=== PATIENT | male | born 1950 | race Caucasian/White ===

== ENCOUNTER 2024-05-26 10:42 | Outpatient (CLI) | payer MEDICARE, SELFPAY ==
--- OUTSIDE RECORDS SUMMARY | 2024-05-26 12:42 | XMS_ITS | Clinical Summary ---
Author Organization [facility] Address [address] [place] [id number] Care Team Providers Care Second Class Welder Name Role Phone Taylor Borrero MD Primary Care Provider Mago Albrecht Unavailable [phone] Hardeep Valenzuela MD Unavailable [phone] Allergies Active Allergy Reactions Criticality Noted Date Comments Balsam Jose Rash Medium 03/10/2024 1+ Cocamidopropyl Betaine Rash Medium 03/10/2024 1+ Formaldehyde Rash Medium 03/10/2024 1+ Sulfa (Sulfonamide Antibiotics) Nausea & Vomiting Low Medications fluticasone (FLONASE) 50 mcg/actuation nasal spray Administer 1 spray into each nostril daily Active finasteride (PROSCAR) 5 mg tablet Take 1 tablet (5 mg total) by mouth daily Active nitroglycerin (NITROSTAT) 0.4 mg SL tablet DISSOLVE 1 TABLET UNDER TONGUE FOR CHEST PAIN. IF PAIN DOESN'T IMPROVE CALL 911. MAY REPEAT EVERY 5 MINUTES NEEDED UP TO A MAX OF 3 TABS. 25 tablet 11 2 Active rosuvastatin (CRESTOR) 20 mg tablet TAKE 1 TABLET BY MOUTH EVERY DAY 90 tablet 3 4 Active losartan (COZAAR) 100 mg tablet TAKE 1 TABLET BY MOUTH EVERY DAY 90 tablet 3 4 Active metoprolol XL (TOPROL-XL) 25 mg extended release tablet TAKE 1/2 TABLET BY MOUTH EVERY DAY 45 tablet 3 4 Active aspirin 81 mg enteric coated tablet Take 1 tablet (81 mg total) by mouth daily Active metroNIDAZOLE (METROCREAM) 0.75 % creamIndications :Acne Rosacea Apply to rosacea on face BID 45 g 2 4 Active clobetasoL (TEMOVATE) 0.05 % creamIndications :Allergic contact dermatitis, unspecified trigger Apply topically 2 (two) times a day To back 45 g 2 4 Active triamcinolone (KENALOG) 0.1 % creamIndications :Allergic contact dermatitis, unspecified trigger Apply to rash BID 80 g 2 4 Active Active Problems Problem Noted Date Diagnosed Date Lesion of left lower eyelid 05/02/2023 Assessment & Plan (05/02/2023 10:56 AM INDUSTRIAL AUTOMATION ENGINEER): Left lower lid (LLL) lesion, 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 Bothersome to patient and creating irritation. Risks, benefits and alternatives were discussed. Risks included but were not limited to pain, bleeding, scarring, recurrence, and possible need for additional procedures. Following this discussion, the patient wishes to proceed with left lower lid (LLL) lesion excision. This was performed today without any complications. They will follow-up as needed and will continue comprehensive eye care with Dr. Drew Gomez, OD . Primary osteoarthritis of right knee 01/16/2023 DDD (degenerative disc disease), lumbar 01/13/20 Lumbar spondylosis 01/12/2022 Degenerative lumbar spinal stenosis 07/25/2021 Lumbar foraminal stenosis 07/25/2021 Lumbar radiculopathy 05/25/2021 History of colon polyps 07/30/2018 Idiopathic hematuria 07/29/2018 ASNHL (asymmetrical sensorineural hearing loss) 04/27/2018 Assessment & Plan (05/16/2023 9:50 AM INDUSTRIAL AUTOMATION ENGINEER): Hearing test, compare to Hearing test from 2019 Avoid ear cleaning techniques Avoid water to ears Assessment & Plan (04/27/2018 2:21 PM INDUSTRIAL AUTOMATION ENGINEER): Patient did undergo a complete audiogram while in the office today that showed an asymmetric hearing loss. The right ear showed a slight to moderate SNHL and the left ear showed a slight to moderate severe SNHL. Tympanogram revealed Type A pattern bilaterally and Discrimination scores on the right were at 96% and the left 92%. Reflexes were completed; on the right side reflexes were absent at 4000 hertz; otherwise reflexes were WNL. Due to the asymmetry, an MRI will be obtained to rule out any retrocochlear pathology. Patient will follow up after imaging. Coronary artery disease invo [place]ving [place] coronary artery of [place] heart without angina pectoris 07/10/2017 Overview (01/30/2024): Mild by catheterization in October 2013 (RL). This was preceeded by an abnormal stress echo by EKG criteria. Assessment & Plan (01/30/2024 12:47 PM CDT): Discussed cardiac catheterization findings from 10 years ago. He has not had any chest pain or shortness of breath with activities. Still walking twice a week for about 30 minutes without any limitation. I encouraged him to do more frequent walks. Assessment & Plan (01/24/2023 2:27 PM CDT): Discussed cardiac catheterization result from 9 years ago. He has no chest pain or shortness of breath with usual household activities. Perhaps gets short of breath with very strenuous exertion. No need for a stress test at this time. I cleared him for his right knee surgery. Assessment & Plan (02/15/2022 12:52 PM INDUSTRIAL AUTOMATION ENGINEER): Discussed cardiac catheterization findings from 8 years ago. He has no chest pain with exertion. Only has shortness of breath going up a very long hill. No need for a stress test at this time. Assessment & Plan (02/16/2021 12:53 PM INDUSTRIAL AUTOMATION ENGINEER): Discussed cardiac catheterization findings from 7 years ago. He has not had any chest pain or shortness of breath with exertion. He is limited by sciatica and because of that he has gained a few lb the past year. We discussed walking as much as he can. Assessment & Plan (02/09/2020 9:08 AM INDUSTRIAL AUTOMATION ENGINEER): No chest pain or shortness of breath with exertion. Benign prostatic hyperplasia with incomplete bladder emptying 07/10/2017 Multiple benign melanocytic nevi 02/15/2017 Overview (07/11/2017): Description: -Clinically benign on exam -Skin cancer education was provided, sun protection measures were discussed. Follow-up if any concerning new or changing moles -Monthly self skin checks -Annual MD skin checks Infectious warts 02/15/2017 Overview (07/11/2017): Description: Right zygomatic cheek. LN2 done to 1 lesion. Blister care. Essential hypertension 09/12/2016 Assessment & Plan (12/16/2020 8:30 AM CDT): Recommend DASH diet, heart-healthy lifestyle, exercise. Discussed the risks of hypertension. History of malignant neoplasm of skin 02/08/2014 Mixed hyperlipidemia 08/15/2013 Overview (01/30/2024): LDL of 63 mg/dL on 26 June 2017. LDL of 74 mg/dL on 31 December 2017. LDL of 79 mg/dL on 21 July 2019. LDL of 67 mg/dL on 06 September 2020. LDL of 69 mg/dL on 15 May 2022. LDL of 69 mg/dL on 17 September 2023. On Crestor 20 mg p.o. q.d.. Assessment & Plan (01/30/2024 12:46 PM CDT): We discussed LDL cholesterol goal of less than 70 mg/dL. He has been at goal since 3 years ago. No change in medical regimen here. We did discuss a better diet and a more regular walking program so he can lose some weight. Should help reduce the LDL cholesterol even more. Assessment & Plan (01/24/2023 2:26 PM CDT): Discussed LDL cholesterol goal of less than 70 mg/dL. He has been at goal since 2 years ago. I will not make any change on the Crestor dose at this time. Assessment & Plan (02/15/2022 12:52 PM INDUSTRIAL AUTOMATION ENGINEER): We discussed LDL cholesterol goal of less than 70 mg/dL. He was at goal last year but needs another lipid panel now. He says he will get this at primary care doctor's office in May 2022. No change in low-dose Crestor dosing at this time. Assessment & Plan (02/16/2021 12:54 PM INDUSTRIAL AUTOMATION ENGINEER): Discussed LDL cholesterol goal of less than 70 mg/dL. He is at goal this year. I did not make any change in Crestor dose Assessment & Plan (02/09/2020 9:08 AM INDUSTRIAL AUTOMATION ENGINEER): We discussed LDL cholesterol goal of less than 70 mg/dL and the lower the better. He will get another lipid panel with Dr. Shepherd next month. He will try a better diet and more walking. Apparently not walking much lately. No change in medications at this time. Keratosis, senilis 10/23/2010 Overview (07/11/2017): Description: Seborrheic Keratosis Resolved Problems Problem Noted Date Diagnosed Date Resolved Date Morbid (severe) obesity due to excess calories 05/29/2022 07/25/2023 Encounter for screening colonoscopy 06/21/2021 11/07/2021 Overview (06/21/2021): Added automatically from request for surgery [id number] Impacted cerumen of right ear 04/18/2018 07/29/2018 Assessment & Plan (04/18/2018 1:54 PM INDUSTRIAL AUTOMATION ENGINEER): Right sided cerumen impaction; required removal. After removal bilateral TM and canal noted to be WNL. Recommend patient follow up every 6 to 12 months for routine ear check and cleanings. Bilateral hearing loss 04/18/201807/29 Assessment & Plan (04/18/2018 1:55 PM INDUSTRIAL AUTOMATION ENGINEER): Patient with complaints of gradual progressive hearing loss. Patient was scheduled for an audiogram today however he missed his appointment. Recommend patient re-schedule an appointment for a complete audiogram for further evaluation - he can follow up with me after to review results. Head and neck lymphadenopathy 03/31/2018 08/11/2019 Assessment & Plan (03/31/2018 8:46 AM INDUSTRIAL AUTOMATION ENGINEER): Findings are consistent with submandibular lymphadenopathy. I did recommend a 10 day course of amoxicillin with close follow-up in 2 weeks for re-evaluation. I did provide education to patient that findings are consistent with likely bacterial infection, however upon follow-up in office due to his concerns of this possibly being cancer, we typically check a CBC and consider ultrasound for further evaluation if there is no changes noted on the lymph node and determine need for consultation if indicated. Use of Colombian yogurt with antibiotics were encouraged. Cough 03/31/2018 07/29/2018 Assessment & Plan (03/31/2018 8:51 AM INDUSTRIAL AUTOMATION ENGINEER): Does not appear to be infectious, no cough was clinically noted today. History of seasonal allergies, no mention of allergy sx at this time. I did encourage patient to complete course of antibiotics as prescribed is that this to be more of a bacterial infection possibly settling chest causing cough that should treat this. We will touch base with him in 2 weeks re-evaluated cough Tinea corporis 02/15/2016 09/23/2020 Overview (07/11/2017): Description: R chest, Lamisil AAAs BID PRN rash. Eczema 02/11/2015 11/07/2021 Overview (07/11/2017): Description: clobetasol to use qd prn risk of atrophy explained moisturizer, mild soap Osteoarthritis of knee 10/27/201409/23 Overview (07/05/2016): Knee osteoarthritis Actinic keratosis 10/23/2010 11/07/2021 Overview (07/11/2017): Description: ln to 5 today (bilateral ears and mid forehead), blister care, sun protect Encounters Date Type Department Care Team Description 05/19/2024 Orders Only [facility] [address] [place] [address] [address] [place] [address] Mago Dias DO Sensorineural hearing loss (SNHL) of both ears (Primary Dx) 03/09/2024 1:00 PM INDUSTRIAL AUTOMATION ENGINEER Office Visit [facility] [address] [place] [address] [address] [place] [phone] Solomon López MD PhD Allergic contact dermatitis, unspecified trigger (Primary Dx) 03/04/2024 9:00 AM INDUSTRIAL AUTOMATION ENGINEER Office Visit [facility] [address] [place] [address] [address] [place] [address] Solomon López MD PhD Pruritus (Primary Dx); Allergic contact dermatitis, unspecified trigger from Last 3 Months Immunizations Immunization Administration Dates Next Due Influenza, Quad, Adjuvantate d, Intramuscular 01/05/2022 Influenza, Quadrivalent, Hig h Dose, Preservative Free, Intrr 01/03/2023,01/03/2021,12/30/2019 Influenza, Quadrivalent, Spl it, Preservative Free, Intradermal 01/28/2015 Influenza, Split 01/20/2013, 2,01/10/2011,01/03 Influenza, Trivalent, High D ose, Split, Preservative Free, Intramuscular 01/06/2024,01/01/2019,12/26/2017,01/08,01/03/2016 Influenza, Trivalent, IM (MDV) 12/30/2008 Influenza, Trivalent, Recomb inant, Egg Free, Preservative Free, Antibiotic Free, IM (FLUBLOK) 01/15/2014 Influenza, Unspecified 12/16/2020(Deferred: Uma ent Refused) Panizon SARS-CoV-2 Monovalent Vaccination (12+ Yrs) PURPLE 05/16/2020,04/25/2020 Pneumococcal Conjugate PCV 13 05/20/2014 Pneumococcal Polysaccharide PPV23 07/01/2015 Tdap 05/20/2014 ZOSTER LIVE 11/30/2010 ZOSTER Recombinant 09/08/2019,06/01/2019 Surgical History Surgery Date Site/Laterality Comments OTHER SURGICAL HISTORY Cystoscopy & IVP VASECTOMY Vasectomy OTHER SURGICAL HISTORY Lumbar Disc diesease COLONOSCOPY 06/11/2016 N/A HERNIA REPAIR CARDIAC CATHETERIZATION REPLACEMENT TOTAL KNEE 02/12/2023 Right Medical History Medical History Date Comments Malignant neoplasm of skin Cance r, skin Hx Other Medical 10/31/2011 double hernia r epair Hx Other Medical heart cath Hypertension CAD (coronary artery disease) Family History Medical History Relation Name Comments Hypertension Father Hypertension; Coronary artery disease Mother CABG ; Depression Mother Depression; Hypertension Mother Hypertension; Colon cancer Nephew Parkinsonism Sister Parkinson's dis ease; Cancer Neg Hx Cancer -; Diabetes Neg Hx Diabetes mellit us; Relation Name Status Comments Father Mother Nephew Sister Social History Tobacco Use Types Packs/Day Years Used Date Smoking Tobacco: Former Smokeless Tobacco: Never Tobacco Cessation:Counseling Given: Not Answered Alcohol Use Standard Drinks/Week Comments Yes 0 (1 standard drink = 0.6 oz pur e alcohol) AUDIT-C Answer Date Recorded Q1: How often do you have a drink containing alc ohol? 2-3 times a week 02/04/2023 Q2: How many drinks containi ng alcohol do you have on a typical day when you are drinking? 1 or 2 02/04/2023 Q3: How often do you have si x or more drinks on one occasion? Never 02/04/2023 PHQ-2 Answer Date Recorded PHQ-2 Total Score (If total score is 3 or more points, staff should administer the PHQ-9) 0 02/13/2024 Personal Safety Answer Date Recorded Have you ever been in or are you currently in a harmful physical or emotional relationship or is someone making you feel afraid or unsafe? Denies 02/12/2023 Sex and Gender Information Value Date Recorded Sex Assigned at Not on file Legal Sex Male 8:04 AM INDUSTRIAL AUTOMATION ENGINEER Gender Identity Not on file Sexual Orientation Straight 09/16/2019 7: 11 AM CDT Obstetrics History Last Filed Vital Signs Vital Sign Reading Time Taken Comments Blood Pressure 124/68 02/13/2024 10:24 AM INDUSTRIAL AUTOMATION ENGINEER Pulse 64 02/13/2024 10:24 AM INDUSTRIAL AUTOMATION ENGINEER Temperature 36 C (96.8 F) 02/13/2024 10:24 AM INDUSTRIAL AUTOMATION ENGINEER Respiratory Rate 16 02/12/2023 3:52 PM INDUSTRIAL AUTOMATION ENGINEER Oxygen Saturation 97% 02/13/2024 10:24 AM INDUSTRIAL AUTOMATION ENGINEER Inhaled Oxygen Concentration - - Weight 99.3 kg (219 lb) 02/13/2024 10:24 AM INDUSTRIAL AUTOMATION ENGINEER Height 175.3 cm (5' 9 ) 02/13/2024 10:24 AM INDUSTRIAL AUTOMATION ENGINEER Body Mass Index 32.34 02/13/2024 10:24 AM INDUSTRIAL AUTOMATION ENGINEER Plan of Treatment Health Maintenance Due Date Last Done Comments Hepatitis B Screening 1968 Prostate Cancer Screening-PSA 11/22/2023, 05/11/2021, 09/06/2020, Additional history exists DTaP/Tdap/Td Vaccine (2 - Td or Tdap) 05/20/2024 05/20/2014 Covid-19 Vaccine (2023- 5 season) 2024 01/20/2024, 01/16/2023, 02/23/2022, Additional history exists Fall Risk Assessment 07/24/2024 07/25/2023, 02/12/2023, 05/29/2022, Additional history exists Well Visit 65+ 07/24/2024 07/25/2023, 05/03, 09/22/2020, Additional history exists Depression Screening 02/12/2025 02/13/2024, 07/25/2023, 05/29/2022, Additional history exists Colon Cancer Screening-Colonoscopy 08/17/2026 08/17/2021, 06/11/2016, 04/29/2013 Pneumococcal vaccine 65+ Completed 07/01/2015, 05/02 Hepatitis C Screening Completed 06/20/2016 Zoster Vaccine Completed 09/08/2019, 05/2019, 11/30/2010 Abdominal Aortic Aneurysm (A AA) Screen Completed 10/27/2020 Colon Cancer Screening-CT Colonography Discontinued 08/17/2021, 06/11/2016, 04/29/2013 Colon Cancer Screening-DNA Stool Discontinued 08/17/2021, 06/11/2016, 04/29/2013 Colon Cancer Screening-FIT Discontinued 08/17, 06/11/2016, 04/29/2013 Colon Cancer Screening-Sigmoidoscopy Discontinued 08/17/2021, 06/11/2016, 04/29/2013 Influenza Vaccine Completed 01/06/2024, , 01/05/2022, Additional history exists Medical Devices Implanted Type Area Bingo Checker Device Identifier Shelf Expiration Date Model / Serial / Lot DepAdreal [employer] Insert Tibial Knee Fixed Rm Posterior Stabilized Attune 8mm Size 6 Polyethylene [id number] - [id number] Implanted:Qty: 1 on 02/12/2023 by Timmy Martinez MD at [facility] Right: Knee [employer] 05/01/2030 [id number] / / [id number] [employer] Attune Cruciate Retain Cementless Knee Right 6 Component Femoral [id number] - [id number] Implanted:Qty: 1 on 02/12/2023 by Timmy Martinez MD at [facility] Right: Knee [employer] 11/29/2032 [id number] / / [id number] [employer] Attune Fb Tib Base Sz 6 Por [id number] - [id number] Implanted:Qty: 1 on 02/12/2023 by Timmy Martinez MD at [facility] Right: Knee [employer] 10/29/2032 [id number] / / [id number] Procedures Procedure Name Priority Date/Time Associated Diagnosis Comments DERM PATCH TESTING - ALLERGIC CONTACT DERMATITIS - DERMATOLOGY Routine 03/05/2024 8:23 AM INDUSTRIAL AUTOMATION ENGINEER Allergic contact dermatitis, unspecified trigger PSA SCREEN Routine 11/21/2022 11:33 AM CDT Prostate cancer screening COLONOSCOPY 08/17/2021 7:12 AM CDT US ABDOMINAL AORTA Schedule Routine, Read Routine (OP Routine) 10/27/2020 8:57 AM CDT Smoking history HEPATITIS C SCREENING Routine 06/20/2016 from Last 3 Months or Most Recently Relevant to Health Maintenance Results * Patch Testing - Allergic Contact Dermatitis - Dermatology - (03/05/2024 8:23 AM INDUSTRIAL AUTOMATION ENGINEER) us Marta Adams MD PhD DERM PROCEDURE ORDERABL ES Final Result * PSA screen (11/21/2022 11:33 AM CDT) PSA-Total 1.14 <=6.20 ng/mL [facility] Comment: Interpretive Data AGE SEX REFERENCE INTERVAL 0 minutes-150 years Female None 0 minutes-49 years Male None 50-59 years Male 0-3.90 60-69 years Male 0-5.40 70-79 years Male 0-6.20 80-150 years Male 0-6.20 The Desire PSA Total assay procedure was used. Results from different manufacturers or methods may not be comparable. Serial testing should be performed using the same method. Current interpretive data last revised 21. Testing performed by: [facility], [address] [place] [address], [place]., [address] Blood 11/21/2022 11:3 3 AM CDT 11/21/2022 7:48 PM CDT us Taylor Borrero MD LAB BLOOD ORD ERABLES Final Result [facility] [place] [address] * COLONOSCOPY (08/17/2021 7:12 AM CDT) Anatomical Region Laterality Modality Other Narrative Procedure Note Isaac Small MD - 08/17/2021 7:12 AM CDT [facility] Patient Name: Herman Cano Procedure Date: 08/17/2021 7:12 AM Date of : 1950 Admit Type: Outpatient Age: 71 Gender: Male Attending MD: Isaac Small M.D. Room: [facility] 2 Note Status: Finalized Patient Profile: Refer to note in patient chart for documentation of history and physical. Procedure: Colonoscopy Indications: High risk colon cancer surveillance: Personalhistory of colonic polyps, Last colonoscopy: April 2013 Referring MD: Curtis Shepherd M.D. Providers: Isaac Small M.D. Impression: - Hemorrhoids found on perianal exam. - Two 2 to 3 mm polyps in the descending colon, removed with a jumbo cold forceps. Resected and retrieved. - Diverticulosis in the sigmoid colon. - The examination was otherwise normal. Recommendation: - Discharge patient to home. - Resume previous diet. - Continue present medications. - Await pathology results. - Repeat colonoscopy in 5 years for surveillance. - Return to primary care physician as previously scheduled. Medicines: Propofol per Anesthesia Complications: No immediate complications. Estimated Blood Loss: Estimated blood loss: none. Procedure: Pre-Anesthesia Assessment: - This assessment was completed [Time ofAssessment] prior to the administration of sedation. The benefits, risks and alternatives of theprocedure and sedation were discussed and informed consentwas obtained. All questions were answered. Please referto the signed informed consent document in the medical record. The bowel preparation used was Miralax and bisacodyl tablets via single dose instruction. The scope was passed under direct vision. TheColonoscope [id number] was introduced through the anus and advanced to the the cecum, identified by appendiceal orifice and ileocecal valve. The colonoscopy was performed with ease. Thecolonoscopy was performed without difficulty. The patient tolerated the procedure well. The quality of thebowel preparation was adequate to identify polyps 6 mmand larger in size. The ileocecal valve, appendiceal orifice, and rectum were photographed. Findings: Hemorrhoids were found on perianal exam. Two sessile polyps were found in the descending colon. The polypswere 2 to 3 mm in size. These polyps were removed with a jumbo cold forceps. Resection and retrieval were complete. Verification of patient identification for the specimen was done by the physician and nurse using the patient's name and date. Estimated blood loss was minimal. Multiple small and large-mouthed diverticula were found in thesigmoid colon. The exam was otherwise without abnormality. Electronically signed by Isaac Small M.D. Isaac Small M.D. 08/17/2021 8:11:30 AM Number of Addenda: 0 Note Initiated On: 08/17/2021 7:12 AM Procedure Code(s): --- Professional --- 52520, Colonoscopy, flexible; with biopsy, single or multiple Diagnosis Code(s): --- Professional --- K57.30, Diverticulosis of large intestine without perforation orabscess without bleeding D12.4, Benign neoplasm of descending colon K64.9, Unspecified hemorrhoids Z86.010, Personal history of colonic polyps CPT copyright 2020 [employer]. All rights reserved. The codes documented in this report are preliminary and upon end finder twisting department reviewmay be revised to meet current compliance requirements. Recognized by the [employer] for promoting quality in endoscopy Isaac Small MD ENDOSCOPY PROCEDURES Final Re sult * US Abdominal Aorta (10/27/2020 8:57 AM CDT) Anatomical Region Laterality Modality Abdomen N/A Ultrasound 10/27/2020 9:04 AM CDT Narrative 10/27/2020 9:05 AM CDT EXAM DESCRIPTION: US ABDOMINAL AORTA REASON FOR STUDY: previous smokerDuration: n/a TECHNIQUE: Grayscale images acquired of the aorta and stored on PACS. Selected color Doppler and spectral images recorded. COMPARISON: None FINDINGS: There are atherosclerotic changes abdominal aorta without definite sonographic evidence of abdominal aortic aneurysm. AORTIC CALIBER MAXIMAL PROXIMAL: 2.3 x 2.6 cm. MID: 1.9 x 2.2 cm. DISTAL: 1.9 x 2.0 cm. ILIAC DIAMETER RIGHT: 1.2 x 1.3 cm. LEFT: The 1.2 x 1.2 cm. OTHER: No other significant finding. IMPRESSION: 1. Atherosclerotic changes of the abdominal aorta without definite sonographic evidence of abdominal aortic aneurysm. THIS IS AN ELECTRONICALLY VERIFIED FINAL REPORT 10/27/2020 9:05 AM - Electronically signed by Bob Chua D.O. PS: PS Report ID: [id number] Reading Location: [id number] Procedure Note Toma Bob Miguel, DO - 10/27/2020 EXAM DESCRIPTION: US ABDOMINAL AORTA REASON FOR STUDY: previous smokerDuration: n/a TECHNIQUE: Grayscale images acquired of the aorta and stored on PACS. Selected color Doppler and spectral images recorded. COMPARISON: None FINDINGS: There are atherosclerotic changes abdominal aorta without definitesonographic evidence of abdominal aortic aneurysm. AORTIC CALIBER MAXIMAL PROXIMAL: 2.3 x 2.6 cm. MID: 1.9 x 2.2 cm. DISTAL: 1.9 x 2.0 cm. ILIAC DIAMETER RIGHT: 1.2 x 1.3 cm. LEFT: The 1.2 x 1.2 cm. OTHER: No other significant finding. IMPRESSION: 1. Atherosclerotic changes of the abdominal aorta without definite sonographic evidence of abdominal aortic aneurysm. THIS IS AN ELECTRONICALLY VERIFIED FINAL REPORT 10/27/2020 9:05 AM - Electronically signed by Bob Chua D.O. PS: PS Report ID: [id number] Reading Location: [id number] Curtis Shepherd MD [facility] [place]ED[place] Final Result * HEPATITIS C SCREENING (06/20/2016) HEP C Normal Historical Provider HEALTH MAINTENANCE Final Result from Last 3 Months or Most Recently Relevant to Health Maintenance Insurance MEDICARE AETNA MEDICARE AETNA SENIOR SUPPLEMENT MEDICARE AETNA SENIOR SUPPLEMENT Advance Directives For more information, please contact: [phone] * Full Code (Latest Code Status on File) Date Activated Date Inactivated Comments 08/17/2021 7:13 AM 08/17/2021 1:09 PM * Full Code Date Activated Date Inactivated Comments 08/17/2021 7:13 AM 08/17/2021 7:13 AM Care Teams Second Class Welder Relationship Specialty Start Date End Date Taylor Borrero MD [address] [place] [id number] PCP - General Internal Medicine 11/14/21 Mago Albrecht PA [address] [facility] [address] [place] [address] Physician Environmental Sustainability Manager Orthopedic Surgery 02/12/23 Hardeep Valenzuela MD [address] [facility] [address] [place] [address] Consulting Physician Cardiovascular Disease 04/30/23
--- OUTSIDE RECORDS SUMMARY | 2024-05-26 12:42 | XMS_ITS | Referral Summary ---
Author Organization [facility] Address [address] [place] [id number] Care Team Providers Care Making Line Worker Name Role Phone Taylor Borrero MD Primary Care Provider Mago Albrecht Unavailable [phone] Hardeep Valenzuela MD Unavailable [phone] Encounters Date Type Department Care Team Description 05/19/2024 Orders Only [facility] [address] [place] [address] Mago Abrams DO Sensorineural hearing loss (SNHL) of both ears (Primary Dx) 03/09/2024 1:00 PM ALLIGATOR HUNTER Office Visit [facility] [address] [place] [address] [address] [place] [id number] Solomon López MD PhD Allergic contact dermatitis, unspecified trigger (Primary Dx) 03/04/2024 9:00 AM ALLIGATOR HUNTER Office Visit [facility] [address] [place] [address] [address] [place] [address] Solomon López MD PhD Pruritus (Primary Dx); Allergic contact dermatitis, unspecified trigger from Last 3 Months Allergies Active Allergy Reactions Criticality Noted Date Comments Balsam [place] Rash Medium 03/10/2024 1+ Cocamidopropyl Betaine Rash [...] 05/02/2023 Assessment & Plan (05/02/2023 10:56 AM ALLIGATOR HUNTER): Left lower lid (LLL) lesion, 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 [...] 04/27/2018 Assessment & Plan (05/16/2023 9:50 AM ALLIGATOR HUNTER): Hearing test, compare to Hearing test from 2019 Avoid ear cleaning techniques Avoid water to ears Assessment & Plan (04/27/2018 2:21 PM ALLIGATOR HUNTER): Patient did undergo a complete audiogram while [...] after imaging. Coronary artery disease invo [place]ving [place] coronary artery of [place] heart without angina pectoris 07/10/2017 Overview (01/30/2024): [...] surgery. Assessment & Plan (02/15/2022 12:52 PM ALLIGATOR HUNTER): Discussed cardiac catheterization findings from 8 years ago. He has no chest pain with exertion. Only has shortness of breath going up a very long hill. No need for a stress test at this time. Assessment & Plan (02/16/2021 12:53 PM ALLIGATOR HUNTER): Discussed cardiac catheterization findings from 7 years ago. He has not had any chest pain or shortness of breath with exertion. He is limited by sciatica and because of that he has gained a few lb the past year. We discussed walking as much as he can. Assessment & Plan (02/09/2020 9:08 AM ALLIGATOR HUNTER): No chest pain or shortness of breath [...] time. Assessment & Plan (02/15/2022 12:52 PM ALLIGATOR HUNTER): We discussed LDL cholesterol goal of less than 70 mg/dL. He was at goal last year but needs another lipid panel now. He says he will get this at primary care doctor's office in May 2022. No change in low-dose Crestor dosing at this time. Assessment & Plan (02/16/2021 12:54 PM ALLIGATOR HUNTER): Discussed LDL cholesterol goal of less than 70 mg/dL. He is at goal this year. I did not make any change in Crestor dose Assessment & Plan (02/09/2020 9:08 AM ALLIGATOR HUNTER): We discussed LDL cholesterol goal of less [...] (06/21/2021): Added automatically from request for surgery [id number] Impacted cerumen of right ear 04/18/2018 07/29/2018 Assessment & Plan (04/18/2018 1:54 PM ALLIGATOR HUNTER): Right sided cerumen impaction; required removal. After removal bilateral TM and canal noted to be WNL. Recommend patient follow up every 6 to 12 months for routine ear check and cleanings. Bilateral hearing loss 04/18/201807/29 Assessment & Plan (04/18/2018 1:55 PM ALLIGATOR HUNTER): Patient with complaints of gradual progressive hearing loss. Patient was scheduled for an audiogram today however he missed his appointment. Recommend patient re-schedule an appointment for a complete audiogram for further evaluation - he can follow up with me after to review results. Head and neck lymphadenopathy 03/31/2018 08/11/2019 Assessment & Plan (03/31/2018 8:46 AM ALLIGATOR HUNTER): Findings are consistent with submandibular lymphadenopathy. I [...] need for consultation if indicated. Use of [place] yogurt with antibiotics were encouraged. Cough 03/31/2018 07/29/2018 Assessment & Plan (03/31/2018 8:51 AM ALLIGATOR HUNTER): Does not appear to be infectious, no [...] and mid forehead), blister care, sun protect Immunizations Immunization Administration Dates Next Due Influenza, [...] 01/15/2014 Influenza, Unspecified 12/16/2020(Deferred: Uma ent Refused) [employer] SARS-CoV-2 Monovalent Vaccination (12+ Yrs) PURPLE 05/16/2020,04/25/2020 Pneumococcal Conjugate PCV 13 05/20/2014 Pneumococcal Polysaccharide PPV23 07/01/2015 Tdap 05/20/2014 ZOSTER LIVE 11/30/2010 ZOSTER Recombinant 09/08/2019,06/01/2019 Social History Tobacco Use Types Packs/Day Years [...] on file Legal Sex Male 8:04 AM ALLIGATOR HUNTER Gender Identity Not on file Sexual Orientation Straight 09/16/2019 7: 11 AM CDT Last Filed Vital Signs Vital Sign Reading Time Taken Comments Blood Pressure 124/68 02/13/2024 10:24 AM ALLIGATOR HUNTER Pulse 64 02/13/2024 10:24 AM ALLIGATOR HUNTER Temperature 36 C (96.8 F) 02/13/2024 10:24 AM ALLIGATOR HUNTER Respiratory Rate 16 02/12/2023 3:52 PM ALLIGATOR HUNTER Oxygen Saturation 97% 02/13/2024 10:24 AM ALLIGATOR HUNTER Inhaled Oxygen Concentration - - Weight 99.3 kg (219 lb) 02/13/2024 10:24 AM ALLIGATOR HUNTER Height 175.3 cm (5' 9 ) 02/13/2024 10:24 AM ALLIGATOR HUNTER Body Mass Index 32.34 02/13/2024 10:24 AM ALLIGATOR HUNTER Plan of Treatment Not on file Medical Devices Implanted Type Area Python Architect Device Identifier Shelf Expiration Date Model / Serial / Lot [employer] Insert Tibial Knee Fixed Rm Posterior Stabilized Attune 8mm Size 6 Polyethylene [id number] - [id number] Implanted:Qty: 1 on 02/12/2023 by Timmy Martinez MD at [facility] Right: Knee [employer] 05/01/2030 [id number] / / [id number] [employer] Attune Cruciate Retain Cementless Knee Right 6 Component Femoral [id number] - [id number] Implanted:Qty: 1 on 02/12/2023 by Timmy Martinez MD at [facility] Right: Knee [employer] 11/29/2032 [id number] / / [id number] [employer] Attune Fb Tib Base Sz 6 Por [id number] - [id number] Implanted:Qty: 1 on 02/12/2023 by Timmy Martinez MD at [facility] Right: Knee [employer] 10/29/2032 [id number] / / [id number] Procedures Procedure Name Priority Date/Time Associated Diagnosis Comments DERM PATCH TESTING - ALLERGIC CONTACT DERMATITIS - DERMATOLOGY Routine 03/05/2024 8:23 AM ALLIGATOR HUNTER Allergic contact dermatitis, unspecified trigger PSA SCREEN [...] Dermatitis - Dermatology - (03/05/2024 8:23 AM ALLIGATOR HUNTER) Marta Adams MD PhD DERM PROCEDURE ORDERABL ES Final Result * PSA screen (11/21/2022 11:33 AM CDT) PSA-Total 1.14 <=6.20 ng/mL [facility] Comment: Interpretive Data AGE SEX REFERENCE INTERVAL [...] data last revised 21. Testing performed by: [facility], [address] [place] [address]., [id number] Blood 11/21/2022 11:3 3 AM CDT 11/21/2022 7:48 PM CDT Taylor Borrero MD LAB BLOOD ORD ERABLES Final Result [facility] [address] [facility] [place] [address] * COLONOSCOPY (08/17/2021 7:12 AM CDT) Anatomical Region Laterality Modality Other Narrative Procedure Note Isaac Small MD - 08/17/2021 7:12 AM CDT [facility] Patient Name: Herman Cano Procedure Date: 08/17/2021 7:12 AM Date of : 1950 Admit Type: Outpatient Age: 71 Gender: Male Attending MD: Isaac Small M.D. Room: [facility] ENDOSCOPY ROOM 2 Note Status: Finalized Patient [...] scope was passed under direct vision. TheColonoscope [id number] was introduced through the anus and advanced [...] 7:12 AM Procedure Code(s): --- Professional --- 31702, Colonoscopy, flexible; with biopsy, single or multiple Diagnosis Code(s): --- Professional --- K57.30, Diverticulosis of large intestine without perforation orabscess without bleeding D12.4, Benign neoplasm of descending colon K64.9, Unspecified hemorrhoids Z86.010, Personal history of colonic polyps CPT copyright 2020 [employer]. All rights reserved. The codes documented in this report are preliminary and upon lambskin trimmer reviewmay be revised to meet current compliance requirements. Recognized by the [employer] [place] for promoting quality in endoscopy us Isaac Small MD ENDOSCOPY PROCEDURES Final Re [...] Bob Chua D.O. PS: PS Report ID: [id number] Reading Location: [id number] Procedure Note Bob Chua, - 10/27/2020 EXAM DESCRIPTION: US ABDOMINAL AORTA [...] Bob Chua D.O. PS: PS Report ID: [id number] Reading Location: [id number] Curtis Shepherd MD [facility] PROCEDURES Final Result * HEPATITIS C SCREENING (06/20/2016) HEP C Normal Historical Provider HEALTH MAINTENANCE Final Result from Last 3 Months or Most Recently Relevant to Health Maintenance Insurance MEDICARE AETNA MEDICARE T SENIOR SUPPLEMENT MEDICARE AETNA SENIOR SUPPLEMENT Advance Directives For more information, please contact: [phone] * Full Code (Latest Code Status on File) Date Activated Date Inactivated Comments 08/17/2021 7:13 AM 08/17/2021 1:09 PM * Full Code Date Activated Date Inactivated Comments 08/17/2021 7:13 AM 08/17/2021 7:13 AM Care Teams Making Line Worker Relationship Specialty Start Date End Date Taylor Borrero MD [address] [place] [address] PCP - General Internal Medicine 11/14/21 Mago Albrecht PA [address] [facility] [address] [place] [address] Physician Lace And Textiles Restorer Orthopedic Surgery 02/12/23 Hardeep Valenzuela MD [address] [place] [address] [address] [place] [address] Consulting Physician Cardiovascular Disease 04/30/23
== END 2024-05-26 10:43 | disposition home or self-care (01) ==
LOC: ANHBWCAUD 10:48
PROVIDERS: PCP Internal Medicine
DX: H90.3 Sensorineural hearing loss, bilateral (principal); H93.13 Tinnitus, bilateral
CPT/HCPCS: 92557; 92567

== ENCOUNTER 2024-07-16 09:30 | Outpatient (RCR) | payer SELFPAY | END 2024-07-16 23:59 | disposition home or self-care (01) | LOC: ANHAUDIO 09:30 | PROVIDERS: PCP Internal Medicine; Visit Provider Internal Medicine | DX: Z46.1 Encounter for fitting and adjustment of hearing aid (principal) | CPT/HCPCS: 99199; V5261 ==